=== PATIENT | male | born 1980 | race Caucasian/White ===

== ENCOUNTER 2022-06-03 05:58 | Emergency (ER) | payer SELFPAY ==
[2022-06-03 06:18] VITALS: TEMP 98.1; BMI 27.4
[2022-06-03] MEDS ORDERED: ACETAMINOPHEN 500 MG TABLET (FP) PO ONE (08:22)
[2022-06-03] MEDS ORDERED: ACETAMINOPHEN 500 MG TABLET (FP) ONE (08:24)
[2022-06-03 08:52] VITALS: BP 127/73; PULSE 83; RESP 20
== END 2022-06-03 08:52 | disposition home or self-care (01) ==
LOC: JER 05:58
DX: S02.2XXA Fracture of nasal bones, initial encounter for closed fracture (principal); Y04.0XXA Assault by unarmed brawl or fight, initial encounter
CPT/HCPCS: 70450-TC; 70486-TC; 72125-TC; 99284-25